=== PATIENT | male | born 1950 | race Caucasian/White ===

== ENCOUNTER → 2017-12-04 | Day surgery (SDC) | payer MEDICARE, OTHER ==
[~2017-12-04] MED LIST: Lactated Ringers 1,000 ML IV SCH; Meperidine PF 25 MG/ML Syringe IV ONE; Meperidine PF 25 MG/ML Syringe ONE; Meperidine PF 50 MG/ML Syringe IV ONE; Meperidine PF 50 MG/ML Syringe ONE; Midazolam 1 MG/ML 2 ML SDV IV ONE
--- NOTE | 2017-12-07 08:09 | OR ---
DATE OF OPERATION: 12/04/2017 PREOPERATIVE DIAGNOSIS: FAMILY HISTORY OF COLON CARCINOMA. POSTOPERATIVE DIAGNOSIS: FAMILY HISTORY OF COLON CARCINOMA. SURGEON: Bimal Romo MD PROCEDURE: FULL LENGTH COLONOSCOPY WITH FORCEPS POLYP REMOVAL X1. ANESTHESIA: Conscious sedation. COMPLICATIONS: None. SPECIMEN: 1. Tubular adenoma, sigmoid colon. 2. Sigmoid biopsy. FINDINGS: 1. Full-length colonoscopy. 2. Mild sigmoid diverticulosis. 3. Sessile polyp, mid sigmoid colon, approximately 0.5 cm. 4. Peridiverticular colitis, mild. RECOMMENDATIONS: Routine colonoscopy every 5 years. INDICATIONS: The patient has a family history of colon CA. He is due for a 5- year routine scope. DESCRIPTION OF PROCEDURE: The patient was prepped and draped, placed in the left lateral decubitus position. A lubricated Olympus colonoscope was inserted and easily advanced to the cecum. We were then directly visualized the ileocecal valve and appendiceal orifice. The bowel prep was excellent. Upon withdrawal of scope, the cecum and ascending and transverse colon appeared completely benign. No signs of any lesions in the descending colon. The patient does have a mild diverticulosis in the sigmoid colon. There was a small area of the peridiverticular colitis in the rectosigmoid junction. I did do a biopsy of that area. Around 40 cm in the mid to distal sigmoid, the patient had one sessile polyp removed in its entirety with three forceps biopsies without complication. The rest of the colon showed no signs of any polyps, masses, ulcerations, or bleeding sites. No signs of any vascular abnormalities. The rectal vault was benign. Retroflexion confirms some perianal hemorrhoids, otherwise benign. Air was suctioned. Scope removed without complication. MYRNA/NICOLE /[id number]
== END ==
LOC: CC.SDS 07:52
PROVIDERS: ATTEND Family Medicine
DX: D12.5 Benign neoplasm of sigmoid colon (principal); K57.30 Diverticulosis of large intestine without perforation or abscess without bleeding; K64.9 Unspecified hemorrhoids; I10 Essential (primary) hypertension; F17.210 Nicotine dependence, cigarettes, uncomplicated; N40.0 Benign prostatic hyperplasia without lower urinary tract symptoms; N52.9 Male erectile dysfunction, unspecified; Z86.010 Personal history of colon polyps; Z79.82 Long term (current) use of aspirin; K52.89 Other specified noninfective gastroenteritis and colitis; Z88.5 Allergy status to narcotic agent; Z80.0 Family history of malignant neoplasm of digestive organs
CPT/HCPCS: 88305; J2175; J2250; J7120

== ENCOUNTER → 2022-10-17 | Day surgery (SDC) | payer MEDICARE, OTHER ==
[~2022-10-17] MED LIST changes: +Flumazenil 0.1 MG/ML 10 ML MDV ONE; -Meperidine PF 25 MG/ML Syringe IV ONE; -Meperidine PF 25 MG/ML Syringe ONE; -Meperidine PF 50 MG/ML Syringe IV ONE; -Meperidine PF 50 MG/ML Syringe ONE; -Midazolam 1 MG/ML 2 ML SDV IV ONE; +Midazolam 1 MG/ML 2 ML SDV ONE; +Propofol 200 MG/20 ML SDV ONE; +fentaNYL 50 MCG/ML SDV ONE
== END ==
LOC: CC.SDS 12:34
PROVIDERS: ATTEND Family Medicine
DX: Z12.11 Encounter for screening for malignant neoplasm of colon (principal); D12.0 Benign neoplasm of cecum; D12.3 Benign neoplasm of transverse colon; D12.5 Benign neoplasm of sigmoid colon; D12.8 Benign neoplasm of rectum; K57.30 Diverticulosis of large intestine without perforation or abscess without bleeding; D64.9 Anemia, unspecified; I10 Essential (primary) hypertension; F17.210 Nicotine dependence, cigarettes, uncomplicated; Z86.010 Personal history of colon polyps; Z80.0 Family history of malignant neoplasm of digestive organs; Z88.5 Allergy status to narcotic agent; Z79.899 Other long term (current) drug therapy
CPT/HCPCS: 88305; J2250; J2704; J3010; J3490; J7120